=== PATIENT | male | born 1970 | race Caucasian/White ===

== ENCOUNTER 2017-04-06 21:44 | Emergency (ER) | payer OTHER ==
[2017-04-06 21:55] VITALS: RESP 16; TEMP 98.1
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
[2017-04-06 22:57] VITALS: BP 149/88; PULSE 65; O2SAT 96
== END 2017-04-06 22:57 | disposition home or self-care (01) ==
DX: S43.005A Unspecified dislocation of left shoulder joint, initial encounter (principal); S29.9XXA Unspecified injury of thorax, initial encounter; V18.0XXA Pedal cycle driver injured in noncollision transport accident in nontraffic accident, initial encounter
CPT/HCPCS: A4565

== ENCOUNTER 2018-07-11 13:32 | Emergency (ER) | payer BC ==
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
[2018-07-11] MEDS ORDERED: IOPAMIDOL (ISOVUE 370) 100 ML BTL IV ONE (14:22)
[2018-07-11] MEDS ORDERED: GADOBUTROL 10 ML VIAL IVP ONE (15:40)
[2018-07-11 19:20] VITALS: BP 148/97
== END 2018-07-11 19:20 | disposition home or self-care (01) ==
PROC: 009U3ZX Drainage of Spinal Canal, Percutaneous Approach, Diagnostic (ICD-10-PCS; principal; 2018-07-11)
DX: R51 Headache (principal); R83.8 Other abnormal findings in cerebrospinal fluid; Z87.828 Personal history of other (healed) physical injury and trauma
CPT/HCPCS: 82435-PO; 82565-PO; 82947-PO; 84132-PO; 84295-PO; 84520-PO; 85014-PO; A9585; Q9967

== ENCOUNTER 2018-07-13 09:45 | Emergency (ER) | payer BC ==
--- NOTE | 2018-07-13 10:14 | EDPHY ---
General - History Smoking Status: Never smoked Time Seen by Provider: 07/13/18 10:09 Narrative: CHIEF COMPLAINT: Headache, here for blood patch HISTORY OF PRESENT ILLNESS: Patient presents by private vehicle with complaints of headache. Headache has been present since March. He reports "it's really complicated," reporting a diagnosis of low-pressure headache Monday after CTAs of the head and neck and MRI without and with of the brain. He had a lumbar puncture performed here with no abnormalities. He was discharged home and contacted Dr. Rodriguez yesterday. He informed her that the headache has worsened and become positional following lumbar puncture. She recommended he come here. He does confirm that the headache is positional and intermittently present. Rated as severe at times. Currently moderate. No neck pain or stiffness. No fever. No redness over the site. REVIEW OF SYSTEMS: 10 systems were reviewed and negative with the exception of the elements mentioned in the history of present illness. PCP: None SPECIALISTS: Dr. Rodriguez PAST MEDICAL HISTORY: Headaches, pneumothorax, shoulder dislocation, PAST SURGICAL HISTORY: No recent surgical history SOCIAL HISTORY: Nonsmoker. Works in [employer] FAMILY HISTORY: Noncontributory EXAMINATION: General Appearance: Alert, no distress. Well appearing. Conversing in full sentences. Head: normocephalic, atraumatic Eyes: Pupils equal and round, no conjunctival pallor or injection ENT, Mouth: Mucous membranes moist Neck: Normal inspection, supple, non-tender. No meningismus. Respiratory: Lungs are clear to auscultation Cardiovascular: Regular rate and rhythm Gastrointestinal: Abdomen is soft and nontender Back: non-tender, no bony abnormalities Neurological: GCS 15 A&O, nonfocal, normal gait. Light sensory symmetric in the upper lower extremities. Strength symmetric upper lower extremities. No pronator drift. Normal [id number] Skin: Warm and dry, no rash. No signs of infection of the LP site from 2 days ago Extremities: Nontender, no pedal edema Psychiatric: Mood and affect normal DIFFERENTIAL DIAGNOSES: Including but not limited to posterior headache, chronic headache, low-pressure headache, migraine MDM: 10:15 a.m. Ongoing headache with diagnosis low-pressure headache with new, positional headache over the past 48 hr status post lumbar puncture. Patient was sent by Dr. Rodriguez for consideration of blood patch but I do feel that he would benefit from this. His neuro exam is fully intact. I discussed with Dr. Saucedo I will discuss with anesthesia. 11:15 a.m. Case discussed with Nidia in the anesthesia office. She reports that anesthesia will be present approximately 1 hr. 11:45 a.m. Case discussed with the employment case manager. She will provide assistance to the patient as he is requesting neurology follow-up outside of our referral group. 1:15 p.m. Anesthesia at bedside. Case management has visit with the patient and help arrange for outpatient neurology follow-up via his physician Dr. Rodriguez. 1:40 p.m. Anesthesiologist performing blood patch at this time. 2:00 p.m. Anesthesiologist has performed a blood patch and feels that he has a good chance of benefit from this. He would like the patient to lay flat 3:00 p.m. And then re-evaluate. 4:00 p.m. Patient re-evaluated. He has been lying flat for 2 hr feels much better. We discussed his post blood patch instructions. We discussed follow up with Dr. Rodriguez in Neurology. We discussed ED precautions for worsening pain, neck pain or stiffness, fever, redness at the site of the blood patch. I have answered all his questions. He will be discharged home stable condition. SUPERVISION: Patient was independently examined, but I discussed the case with my secondary supervising physician Dr. Saucedo CONSULTATION: Anesthesia (Joe Espinoza) Medical Decision Making: PHYSICIAN DOCUMENTATION: The patient was evaluated and managed by the [facility] Recruiting Coordinator. My co- signature indicates that I have reviewed this chart and I agree with the findings and plan of care as documented. I am the secondary supervising physician. (Bienvenido Saucedo) - Objective Vital Signs: Initial Vital Signs Temperature (C) 98.2 F 07/13/18 09:48 Heart Rate 91 07/13/18 09:48 Respiratory Rate 18 07/13/18 09:48 Blood Pressure 161/105 H 07/13/18 09:48 O2 Sat (%) 96 07/13/18 09:48 O2 Delivery Mode Room Air Allergies/Adverse Reactions: azithromycin Allergy (Verified 03/31/18 10:34) Penicillins Allergy (Verified 03/31/18 10:34) Home Medications: Medication Instructions Recorded NK [No Known Home Meds] 07/13/18 Departure - Departure Disposition: Home, Routine, Self-Care Clinical Impression: Post-dural puncture headache Headache Qualifiers: Headache type: unspecified Headache chronicity pattern: chronic headache Intractability: not intractable Qualified Code(s): R51 - Headache Condition: Good Instructions: Acute Headache (ED), Epidural Blood Patch (DC) Additional Instructions: 1. Follow up with Dr. Rodriguez for outpatient further care 2. Dr. Rodriguez will help arrange for your neurology follow-up At your request 3. ED precautions for sudden change in headache, nausea, vomiting, visual disturbance, neck pain or stiffness, numbness, tingling or weakness Referrals: Katharina Rodriguez MD [Medical Doctor] - As per Instructions
--- NOTE | 2018-07-13 13:06 | PDCONSULT ---
Appetizer Packer Note: Pain Management Consultation / Epidural Blood Patch S: 48M with chronic positional headaches for past 3 months having undergone extensive workup. Recent LP revealed low dural pressure, with current working diagnosis being low pressure headache syndrome. He describes occipital headache radiating into parietal area, improves with laying flat and worsens with sitting or standing. Endorses photophobia, phonophobia. Denies nausea, vomiting, visual disturbances. The pain is minimal at rest and worsens in severity to 7/10 with sitting or standing. O: Temp Pulse Resp BP Pulse Ox 36.8 C 91 18 161/105 H 96 07/13/18 09:48 07/13/18 09:48 07/13/18 09:48 07/13/18 09:48 07/13/18 09:48 Gen: laying in bed, in NAD, room darkened HEENT: EOMI, NCAT CV: RRR Pulm: nonlaborous Neuro: CN 2-12 intact, no focal sensorimotor deficits MSK: normal ROM, strength in all extremities A/P: 48M with recent diagnosis of low pressure headache syndrome after 3+ months of positional headaches. Anesthesiology consulted for consideration of epidural blood patch. This is a reasonable treatment modality at this time given that conservative management with hydration and caffeine (and time) have been trialed to no avail. If his pain is truly a result of a small defect in the dura resulting in a chronic leak of CSF, then EBP should help. If this is not beneficial, it may be prudent to image the spine itself with MRI or CT myelogram.
[2018-07-13 16:50] VITALS: BP 152/88
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
== END 2018-07-13 16:50 | disposition home or self-care (01) ==
PROC: 3E0S3GC Introduction of Other Therapeutic Substance into Epidural Space, Percutaneous Approach (ICD-10-PCS; principal; 2018-07-13)
DX: G97.1 Other reaction to spinal and lumbar puncture (principal)